=== PATIENT | female | born 1975 | race American Indian/Alaskan Native ===

== ENCOUNTER 2018-02-20 15:12 | Outpatient (CLI) | payer OTHER | END 2018-02-20 15:31 | disposition home or self-care (01) | LOC: MAMO-SONO 15:12 | DX: Z12.31 Encounter for screening mammogram for malignant neoplasm of breast (principal); N60.11 Diffuse cystic mastopathy of right breast; N60.12 Diffuse cystic mastopathy of left breast ==

== ENCOUNTER 2018-06-05 14:43 | Outpatient (CLI) | payer OTHER | END 2018-06-05 15:16 | disposition home or self-care (01) | LOC: MAMO-SONO 14:43 | DX: N60.11 Diffuse cystic mastopathy of right breast (principal); N60.12 Diffuse cystic mastopathy of left breast ==

== ENCOUNTER 2019-02-26 14:33 | Outpatient (CLI) | payer OTHER | END 2019-02-26 14:52 | disposition home or self-care (01) | LOC: MAMO-SONO 14:33 | DX: N60.11 Diffuse cystic mastopathy of right breast (principal); N60.12 Diffuse cystic mastopathy of left breast; Z12.31 Encounter for screening mammogram for malignant neoplasm of breast ==

== ENCOUNTER 2020-01-29 09:52 | Outpatient (CLI) | payer OTHER | END 2020-01-29 10:04 | disposition home or self-care (01) | LOC: RAD 09:52 | DX: J15.7 Pneumonia due to Mycoplasma pneumoniae (principal) ==

== ENCOUNTER 2020-02-29 12:11 | Outpatient (CLI) | payer OTHER | END 2020-02-29 12:13 | disposition home or self-care (01) | LOC: RAD 12:11 | DX: M54.5 Low back pain (principal); A49.3 Mycoplasma infection, unspecified site; J01.80 Other acute sinusitis; J01.41 Acute recurrent pansinusitis; J01.81 Other acute recurrent sinusitis ==

== ENCOUNTER 2020-09-19 14:09 | Outpatient (CLI) | payer OTHER | END 2020-09-19 14:19 | disposition home or self-care (01) | LOC: MAMO-SONO 14:09 | PROVIDERS: ATTEND Obstetrics & Gynecology | DX: Z12.31 Encounter for screening mammogram for malignant neoplasm of breast (principal); N60.12 Diffuse cystic mastopathy of left breast; N60.11 Diffuse cystic mastopathy of right breast ==

== ENCOUNTER 2021-09-22 11:44 | Outpatient (CLI) | payer OTHER | END 2021-09-22 12:03 | disposition home or self-care (01) | LOC: MAMO-SONO 11:44 | PROVIDERS: ATTEND Obstetrics & Gynecology | DX: N60.11 Diffuse cystic mastopathy of right breast (principal); N60.12 Diffuse cystic mastopathy of left breast; N93.8 Other specified abnormal uterine and vaginal bleeding; R10.2 Pelvic and perineal pain ==

== ENCOUNTER 2022-01-28 10:04 | Outpatient (CLI) | payer OTHER | END 2022-01-28 10:19 | disposition home or self-care (01) | LOC: SONOGRAMA 10:04 | PROVIDERS: ATTEND Obstetrics & Gynecology | DX: R10.2 Pelvic and perineal pain (principal); N83.209 Unspecified ovarian cyst, unspecified side ==

== ENCOUNTER 2022-09-24 11:21 | Outpatient (CLI) | payer OTHER | END 2022-09-24 11:40 | disposition home or self-care (01) | LOC: MAMO-SONO 11:21 | PROVIDERS: ATTEND Obstetrics & Gynecology | DX: N60.11 Diffuse cystic mastopathy of right breast (principal); N60.12 Diffuse cystic mastopathy of left breast ==